=== PATIENT | male | born 1985 | race Caucasian/White ===

== ENCOUNTER 2020-09-21 10:00 | Emergency (ER) | payer OTHER ==
[~2020-09-21 10:00] MED LIST: ANUSOL-HC30 GM TOP; FLEXERIL10 MG PO; HYDROCODON-ACE1 EAC2 PO; NAPROSYN375 MG PO; OCUFLOX5 ML OD; PERCOCET 10-321 EACH PO; ULTRAM50 MG PO
[2020-09-21] MEDS ORDERED: ULTRAM50 MG PO (11:51)
[2020-09-21] MEDS ORDERED: KEFLEX250 MG PO (11:51)
== END 2020-09-21 12:22 | disposition home or self-care (01) ==
LOC: FER 10:00
DX: S02.842A Fracture of lateral orbital wall, left side, initial encounter for closed fracture (principal); S02.32XA Fracture of orbital floor, left side, initial encounter for closed fracture; S02.40DA Maxillary fracture, left side, initial encounter for closed fracture; S01.90XA Unspecified open wound of unspecified part of head, initial encounter; F17.210 Nicotine dependence, cigarettes, uncomplicated; W19.XXXA Unspecified fall, initial encounter; Y93.89 Activity, other specified; Y92.009 Unspecified place in unspecified non-institutional (private) residence as the place of occurrence of the external cause
CPT/HCPCS: 70450; 70486

== ENCOUNTER 2021-11-03 10:23 | Emergency (ER) | payer OTHER ==
[~2021-11-03 10:23] MED LIST changes: +KEFLEX250 MG PO
[2021-11-03] MEDS ORDERED: NORCO 5-325 TA1 EACH PO (11:10)
== END 2021-11-03 11:22 | disposition home or self-care (01) ==
LOC: FER 10:23
DX: K08.89 Other specified disorders of teeth and supporting structures (principal); M27.8 Other specified diseases of jaws; F17.200 Nicotine dependence, unspecified, uncomplicated; Z28.310 Unvaccinated for COVID-19
CPT/HCPCS: 99282